=== PATIENT | female | born 1995 | race Caucasian/White ===

== ENCOUNTER 2017-11-04 21:07 | Emergency (ER) | payer BC, MEDICAID ==
[2017-11-04] MEDS ORDERED: Bacitracin Oint 1 GM U/D Packet TOP ONE (21:20)
[2017-11-04] MEDS ORDERED: Diphtheria,Pertussis(Acell),Tetanus Vaccine 0.5 ML Syringe IM ONE (21:20)
[2017-11-04] MEDS ORDERED: Lidocaine 1% 20 ML MDV INJECT ONE (21:20)
--- NOTE | 2017-11-04 21:31 | EDM.PDOC ---
ED HPI GENERAL MEDICAL PROBLEM - General Chief Complaint: Laceration Stated Complaint: PT CUT LT INDEX FINGER Time Seen by Provider: 11/04/17 21:15 Source of Information: Reports: Patient History Limitations: Reports: No Limitations - History of Present Illness INITIAL COMMENTS - FREE TEXT/NARRATIVE: HISTORY AND PHYSICAL: History of present illness: Kimberly 22-year-old female here for finger laceration. Patient reports cutting her left index finger a cutting a watermelon but 30 minutes ago. Tetanus status unknown.] Review of systems: As per history of present illness and below otherwise all systems reviewed and negative. Past medical history: As per history of present illness and as reviewed below otherwise noncontributory. Surgical history: As per history of present illness and as reviewed below otherwise noncontributory. Social history: No reported history of drug or alcohol abuse. Family history: As per history of present illness and as reviewed below otherwise noncontributory. Physical exam: HEENT: Atraumatic, normocephalic, pupils reactive, negative for conjunctival pallor or scleral icterus, mucous membranes moist, throat clear, neck supple, nontender, trachea midline. Skin: 1 cm linear laceration of pad of the left index Extremities: Atraumatic, negative for cords or calf pain. Neurovascular unremarkable. Neuro: Awake, alert, oriented. Cranial nerves II through XII unremarkable. Cerebellum unremarkable. Motor and sensory unremarkable throughout. Exam nonfocal. Notes: See procedure note Diagnostics: [] Therapeutics: [Tetanus immunization] Impression: [Finger laceration] Plan: [#1 keep the area clean and dry #2 follow-up with your primary care provider #3 return to ED as needed as discussed] Definitive disposition and diagnosis as appropriate pending reevaluation and review of above. - Related Data Allergies Allergy/AdvReac Type Severity Reaction Status Date / Time amoxicillin [From Augmentin] Allergy Nausea and Verified 11/04/17 21:34 Vomiting clavulanic acid Allergy Nausea and Verified 11/04/17 21:34 [From Augmentin] Vomiting Home Meds: Home Meds Progesterone,Micronized [Progesterone] 300 mg PO TID 11/04/17 [History] Past Medical History - Past Health History Medical/Surgical History: Denies Medical/Surgical History HEENT History: Reports: Impaired Vision Other HEENT History: Wears glasses Cardiovascular History: Reports: None Respiratory History: Reports: None Gastrointestinal History: Reports: None Genitourinary History: Reports: None 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: , Other (See Below) Other OB/BYN History: irregular menses; hx of 2 pregnancies 1 c section Musculoskeletal History: Reports: None Neurological History: Reports: None Psychiatric History: Reports: Anxiety, Other (See Below) Other Psychiatric History: Mood disorder Endocrine/Metabolic History: Reports: None Hematologic History: Reports: Anemia Immunologic History: Reports: None Oncologic (Cancer) History: Reports: None Dermatologic History: Reports: None - Infectious Disease History Infectious Disease History: Reports: Chicken Pox - Past Surgical History Female Surgical History: Reports: Other (See Below) Social & Family History - Family History Family Medical History: Noncontributory - Tobacco Use Smoking Status *Q: Current Some Day Smoker Years of Tobacco use: 3 Packs/Tins Daily: 4 Used Tobacco, but Quit: No Month/Year Tobacco Last Used: Second Hand Smoke Exposure: No - Caffeine Use Caffeine Use: Reports: Coffee, Soda - Alcohol Use Days Per Week of Alcohol Use: 0 - Recreational Drug Use Recreational Drug Use: No ED ROS GENERAL - Review of Systems Review Of Systems: ROS reveals no pertinent complaints other than HPI. ED EXAM, SKIN/RASH Exam: See Below (See dictation) ED SKIN PROCEDURES - Laceration/Wound Repair Left Hand Lac/Wound length In cm: 1 Appearance: Superficial, Linear, Clean Distal NVT: Neuro & Vascular Intact, No Tendon Injury Anesthetic Type: Local Local Anesthesia - Lidocaine (Xylocaine): 1% Plain Local Anesthetic Volume: 1cc Skin Prep: Chlorhexidine (Hibiciens), Saline, Sterile Drape Exploration/Debridement/Repair: Wound Explored, In a Bloodless Field, Explored to Base, No Foreign Material Found Closed with: Sutures Suture Size: 4-0 # of Sutures: 3 Suture Type: Nylon Sterile Dressing Applied: Nurse Tetanus Status Addressed: Yes Complications: No Course - Vital Signs Last Recorded V/S: Last Vital Signs Temp 36.6 C 11/04/17 21:07 Pulse 77 11/04/17 21:07 Resp 18 11/04/17 21:07 BP 114/64 11/04/17 21:07 Pulse Ox 100 11/04/17 21:07 - Orders/Labs/Meds Orders: Active Orders 24 hr Category Date Time Status Vaccines to be Administered [RC] PER UNIT ROUTINE Care 11/04/17 21:21 Active Meds: Medications Discontinued Medications Generic Name Dose Route Start Last Admin Trade Name Sathya PRN Reason Stop Dose Admin Bacitracin 1 dose 11/04/17 21:20 11/04/17 21:38 Bacitracin Oint 1 Gm TOP 11/04/17 21:21 1 dose ONETIME ONE Administration Diphtheria/Tetanus/Acell Pertussis 0.5 ml 11/04/17 21:20 11/04/17 21:38 Adacel IM 11/04/17 21:21 0.5 ml .ONCE ONE Administration Lidocaine HCl 20 ml 11/04/17 21:20 11/04/17 21:37 Xylocaine 1% INJECT 11/04/17 21:21 20 ml ONETIME ONE Administration Departure - Departure Time of Disposition: 21:53 Disposition: Home, Self-Care 01 Condition: Good Clinical Impression: Laceration of finger of left hand - Discharge Information Referrals: PCP,None [Primary Care Provider] - Forms: ED Department Discharge Additional Instructions: The following information is given to patients seen in the emergency department who are being discharged to home. This information is to outline your options for follow-up care. We provide all patients seen in our emergency department with a follow-up referral. The need for follow-up, as well as the timing and circumstances, are variable depending upon the specifics of your emergency department visit. If you don't have a primary care physician on staff, we will provide you with a referral. We always advise you to contact your personal physician following an emergency department visit to inform them of the circumstance of the visit and for follow-up with them and/or the need for any referrals to a consulting specialist. The emergency department will also refer you to a specialist when appropriate. This referral assures that you have the opportunity for follow-up care with a specialist. All of these measure are taken in an effort to provide you with optimal care, which includes your follow-up. Under all circumstances we always encourage you to contact your private physician who remains a resource for coordinating your care. When calling for follow-up care, please make the office aware that this follow-up is from your recent emergency room visit. If for any reason you are refused follow-up, please contact the [facility] Emergency Department at and asked to speak to the emergency department charge nurse. #1 keep the area clean and dry #2 follow-up with your primary care provider #3 return to ED as needed as discussed
[2017-11-04 22:46] VITALS: BP 127/74
== END 2017-11-04 22:06 | disposition home or self-care (01) ==
LOC: MW.ED 21:07
DX: S61.211A Laceration without foreign body of left index finger without damage to nail, initial encounter (principal); F17.210 Nicotine dependence, cigarettes, uncomplicated; W45.8XXA Other foreign body or object entering through skin, initial encounter; Z23 Encounter for immunization; Z88.1 Allergy status to other antibiotic agents
CPT/HCPCS: 90471; 90715; 99283-25

== ENCOUNTER 2021-06-23 13:17 | Emergency (ER) | payer BC, MEDICAID, OTHER ==
--- NOTE | 2021-06-23 13:20 | EDM.PDOC ---
ED HPI GENERAL MEDICAL PROBLEM - General Stated Complaint: LOWER ABDOMINAL PAIN,? Time Seen by Provider: 06/23/21 13:19 Source of Information: Reports: Patient History Limitations: Reports: No Limitations - History of Present Illness INITIAL COMMENTS - FREE TEXT/NARRATIVE: 26-year-old female presents for lower abdominal pain and diarrhea. Patient states the pain has been going on for about the last 2 days. Its in her suprapubic/lower abdominal area on both sides that does radiate to her lower back. She denies any urinary symptoms, specifically denies dysuria, hematuria. Also denies vaginal discharge or vaginal bleeding. Patient notes that her last menstrual period was roughly 1 week ago and no different than normal. She states that she took a test today which resulted as positive. She has been having normal menstrual cycles. She notes a past surgical history of appendectomy as well as multiple C-sections. She notes mild nausea but denies any vomiting. Denies any cough or chest pain. Denies fevers. Bilateral Abdominal Pain Score (Numeric/FACES): 8 - Related Data Allergies Allergy/AdvReac Type Severity Reaction Status Date / Time Penicillins Allergy Anaphylactic Verified 06/23/21 13:28 Shock Home Meds: Home Meds . 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 07/29/18 Now . VAVD x1, PCSx1 Musculoskeletal History: Reports: None Neurological History: Reports: None Psychiatric History: Reports: Anxiety, Other (See Below) Other Psychiatric History: Mood disorder Endocrine/Metabolic History: Reports: None Hematologic History: Reports: Anemia Immunologic History: Reports: None Oncologic (Cancer) History: Reports: None Dermatologic History: Reports: None - Infectious Disease History Infectious Disease History: Reports: Chicken Pox - Past Surgical History Head Surgeries/Procedures: Reports: None GI Surgical History: Reports: Appendectomy Other GI Surgeries/Procedures: 2001 Female Surgical History: Reports: Other (See Below) Social & Family History - Family History Family Medical History: No Pertinent Family History - Caffeine Use Caffeine Use: Reports: Coffee, Soda Other Caffeine Use: q other day ED ROS GENERAL - Review of Systems Review Of Systems: Comprehensive ROS is negative, except as noted in HPI. ED EXAM, GENERAL - Physical Exam Exam: See Below Exam Limited By: No Limitations General Appearance: Alert, WD/WN, No Apparent Distress Ears: Hearing Grossly Normal Throat/Mouth: Normal Voice, No Airway Compromise Head: Atraumatic, Normocephalic Respiratory/Chest: No Respiratory Distress, Lungs Clear, Normal Breath Sounds, No Accessory Muscle Use Cardiovascular: Normal Peripheral Pulses, Regular Rate, Rhythm GI/Abdominal: Soft, Non-Tender Extremities: Normal Inspection Neurological: Alert, Normal Cognition, Normal Gait Psychiatric: Normal Affect, Normal Mood Skin Exam: Warm, Dry, Intact, Normal Color Course - Vital Signs Last Recorded V/S: Last Vital Signs Temp 97.5 F 06/23/21 13:29 Pulse 97 06/23/21 13:29 Resp 17 06/23/21 13:29 BP 113/71 06/23/21 13:29 Pulse Ox 99 06/23/21 13:29 - Orders/Labs/Meds Orders: Active Orders 24 hr Category Date Time Status HCG QUALITATIVE,URINE [URCHEM] Stat Lab 06/23/21 13:30 Ordered UA W/MCKENNA RFLX IF INDICATED [URIN] Stat Lab 06/23/21 13:31 Ordered Saline Lock Insert [OM.PC] Stat Oth 06/23/21 13:32 Ordered Labs: Laboratory Tests 06/23/21 06/23/21 06/23/21 Range/Units 14:23 14:23 14:23 WBC 9.02 (4.0-11.0) K/uL RBC 4.06 L (4.30-5.90) M/uL Hgb 12.6 (12.0-16.0) g/dL Hct 37.4 (36.0-46.0) % MCV 92.1 (80.0-98.0) fL MCH 31.0 (27.0-32.0) pg MCHC 33.7 (31.0-37.0) g/dL RDW Std Deviation 45.0 (28.0-62.0) fl RDW Coeff of Alisa 13 (11.0-15.0) % Plt Count 238 (150-400) K/uL MPV 10.30 (7.40-12.00) fL Neut % (Auto) 77.8 (48.0-80.0) % Lymph % (Auto) 15.4 L (16.0-40.0) % Waldo % (Auto) 6.0 (0.0-15.0) % Eos % (Auto) 0.6 (0.0-7.0) % Baso % (Auto) 0.2 (0.0-1.5) % Neut # (Auto) 7.0 H (1.4-5.7) K/uL Lymph # (Auto) 1.4 (0.6-2.4) K/uL Waldo # (Auto) 0.5 (0.0-0.8) K/uL Eos # (Auto) 0.1 (0.0-0.7) K/uL Baso # (Auto) 0.0 (0.0-0.1) K/uL Nucleated RBC % 0.0 /100WBC Nucleated RBCs # 0 K/uL Sodium 140 (136-145) mmol/L Potassium 4.2 (3.5-5.1) mmol/L Chloride 101 (98-107) mmol/L Carbon Dioxide 32.2 H (21.0-32.0) mmol/L BUN 7 (7.0-18.0) mg/dL Creatinine 0.8 (0.6-1.0) mg/dL Est Cr Clr Drug Dosing 88.15 mL/min Estimated GFR (MDRD) > 60.0 ml/min Glucose 100 (74-106) mg/dL Calcium 9.8 (8.5-10.1) mg/dL Total Bilirubin 0.4 (0.2-1.0) mg/dL AST 13 L (15-37) IU/L ALT 22 (14-63) IU/L Alkaline Phosphatase 65 (46-116) U/L Total Protein 7.5 (6.4-8.2) g/dL Albumin 4.2 (3.4-5.0) g/dL Globulin 3.3 (2.6-4.0) g/dL Albumin/Globulin Ratio 1.3 (0.9-1.6) HCG, Quant 193.0 mIU/mL Blood Type 06/23/21 Range/Units 14:23 WBC (4.0-11.0) K/uL RBC (4.30-5.90) M/uL Hgb (12.0-16.0) g/dL Hct (36.0-46.0) % MCV (80.0-98.0) fL MCH (27.0-32.0) pg MCHC (31.0-37.0) g/dL RDW Std Deviation (28.0-62.0) fl RDW Coeff of Alisa (11.0-15.0) % Plt Count (150-400) K/uL MPV (7.40-12.00) fL Neut % (Auto) (48.0-80.0) % Lymph % (Auto) (16.0-40.0) % Waldo % (Auto) (0.0-15.0) % Eos % (Auto) (0.0-7.0) % Baso % (Auto) (0.0-1.5) % Neut # (Auto) (1.4-5.7) K/uL Lymph # (Auto) (0.6-2.4) K/uL Waldo # (Auto) (0.0-0.8) K/uL Eos # (Auto) (0.0-0.7) K/uL Baso # (Auto) (0.0-0.1) K/uL Nucleated RBC % /100WBC Nucleated RBCs # K/uL Sodium (136-145) mmol/L Potassium (3.5-5.1) mmol/L Chloride (98-107) mmol/L Carbon Dioxide (21.0-32.0) mmol/L BUN (7.0-18.0) mg/dL Creatinine (0.6-1.0) mg/dL Est Cr Clr Drug Dosing mL/min Estimated GFR (MDRD) ml/min Glucose (74-106) mg/dL Calcium (8.5-10.1) mg/dL Total Bilirubin (0.2-1.0) mg/dL AST (15-37) IU/L ALT (14-63) IU/L Alkaline Phosphatase (46-116) U/L Total Protein (6.4-8.2) g/dL Albumin (3.4-5.0) g/dL Globulin (2.6-4.0) g/dL Albumin/Globulin Ratio (0.9-1.6) HCG, Quant mIU/mL Blood Type A POSITIVE Meds: Medications Discontinued Medications Generic Name Dose Route Start Last Admin Trade Name Sathya PRN Reason Stop Dose Admin Acetaminophen 1,000 mg 06/23/21 13:36 06/23/21 13:48 Acetaminophen 500 Mg Tab PO 06/23/21 13:37 1,000 mg ONETIME ONE Administration - Re-Assessments/Exams Free Text/Narrative Re-Assessment/Exam: 06/23/21 13:38 We will get basic labs including quantitative beta-hCG. Will get pelvic ultrasound. Will treat symptomatically with Tylenol while working up. 06/23/21 15:20 Labs show positive b-hcg, US is inconclusive. Patient was set up for an appointment on Monday of next week for follow-up beta-hCG and oceanography. Departure - Departure Time of Disposition: 15:32 Disposition: Home, Self-Care 01 Condition: Good Clinical Impression: Threatened miscarriage in early - Discharge Information Instructions: Threatened Miscarriage, [id number] Referrals: PCP,None [Primary Care Provider] - Lizette Lund MD [Physician] - 06/28/21 1:00 pm (Please arrive 30 minutes prior to arrival with photo ID and insurance card) Forms: ED Department Discharge Additional Instructions: Please follow-up with the physician as indicated on your paperwork. The following information is given to patients seen in the emergency department who are being discharged to home. This information is to outline your options for follow-up care. We provide all patients seen in our emergency department with a follow-up referral. The need for follow-up, as well as the timing and circumstances, are variable depending upon the specifics of your emergency department visit. If you don't have a primary care physician on staff, we will provide you with a referral. We always advise you to contact your personal physician following an emergency department visit to inform them of the circumstance of the visit and for follow-up with them and/or the need for any referrals to a consulting specialist. The emergency department will also refer you to a specialist when appropriate. This referral assures that you have the opportunity for follow-up care with a specialist. All of these measure are taken in an effort to provide you with optimal care, which includes your follow-up. Under all circumstances we always encourage you to contact your private physician who remains a resource for coordinating your care. When calling for follow-up care, please make the office aware that this follow-up is from your recent emergency room visit. If for any reason you are refused follow-up, please contact the [facility] Emergency Department at and asked to speak to the emergency department charge nurse. Please follow up with your primary care physician. If you do not have a primary care physician, see below: [facility] [address] [place] [address] My [facility] [address] [place] [address] [facility] [address] [place] [address] Sepsis Event Note (ED) - Focused Exam Vital Signs: Vital Signs Temp Pulse Resp BP Pulse Ox 06/23/21 13:29 97.5 F 97 17 113/71 99 - My Orders Last 24 Hours: My Active Orders 06/23/21 13:30 HCG QUALITATIVE,URINE [URCHEM] Stat 06/23/21 13:31 UA W/MCKENNA RFLX IF INDICATED [URIN] Stat 06/23/21 13:32 Saline Lock Insert [OM.PC] Stat - Assessment/Plan Last 24 Hours: My Active Orders 06/23/21 13:30 HCG QUALITATIVE,URINE [URCHEM] Stat 06/23/21 13:31 UA W/MCKENNA RFLX IF INDICATED [URIN] Stat 06/23/21 13:32 Saline Lock Insert [OM.PC] Stat
[2021-06-23] MEDS ORDERED: Acetaminophen 500 MG Tab PO ONE (13:36)
[2021-06-23 14:51] LABS: BLOOD UREA NITROGEN,BUN 7 mg/dL (7.0-18.0); CARBON DIOXIDE,CO2 32.2 mmol/L (21.0-32.0); CHLORIDE,CL 101 mmol/L (98-107); GLUCOSE RANDOM 100 mg/dL (74-106); POTASSIUM,K 4.2 mmol/L (3.5-5.1); SODIUM,NA 140 mmol/L (136-145)
--- NOTE | 2021-06-23 15:18 | US ---
INDICATION: Pain, bleeding beta HCG 193 TECHNIQUE: Ultrasound OB pelvis transabdominal and transvaginal. Real-time kaiser-scale imaging of the pelvis was performed. COMPARISON: None FINDINGS: The uterus measures 8.8 by 4.3 x 4.3 centimeters without evidence of gestational sac. Endometrium measures 8 millimeters. The ovaries are grossly normal in size, contour and echogenicity without evidence of definite mass or cyst. There is a moderate to severe mildly complex fluid within the cul-de-sac. There is questionable minimal vascularity within the lower uterine segment. IMPRESSION: No evidence of intrauterine gestation. Grossly normal appearing bilateral ovaries. Moderate complex fluid seen within the pelvis. Overall, an ectopic cannot be excluded and continued follow-up with serial beta HCG and ultrasound is recommended. Dictated by Myron Segovia MD @ 06/23/2021 3:18:13 PM (Electronically Signed)
[2021-06-23 15:55] VITALS: BP 117/74; PULSE 77
== END 2021-06-23 15:55 | disposition home or self-care (01) ==
LOC: MW.ED 13:17
DX: O20.0 Threatened abortion (principal); Z3A.01 Less than 8 weeks gestation of pregnancy; Z88.0 Allergy status to penicillin
CPT/HCPCS: 36415; 76801; 80053; 81003; 81025; 84702; 85025; 86900; 86901; 99284; A9270